=== PATIENT | male | born 1960 | race Caucasian/White ===

== ENCOUNTER 2019-11-01 10:00 | Outpatient (CLI) | payer OTHER, SELFPAY ==
--- NOTE | 2019-11-01 12:45 | DI.US_ITS ---
EXAM: US SOFT TISSUE EXTREMITY CLINICAL HISTORY: tender mass/lump/localized swelling of rt arm, R22.30 TECHNIQUE: Ultrasound performed using standard protocol. COMPARISON: No exams were available for comparison FINDINGS: Soft tissue ultrasound performed the right forearm, the patient has reportedly been recently treated for cellulitis in this area. There is mild nonspecific soft tissue edema in the region surveyed. No abscess seen. No other soft tissue abnormality identified. IMPRESSION: Essentially negative soft tissue ultrasound. DATA REPOSITORY:
== END 2019-11-01 10:20 ==
PROVIDERS: PCP Emergency Medicine; Visit Provider Nurse Practitioner
DX: R22.31 Localized swelling, mass and lump, right upper limb (principal); R60.0 Localized edema
CPT/HCPCS: 76881

== ENCOUNTER 2020-08-01 02:13 | Outpatient (CLI) | payer OTHER, SELFPAY ==
[2020-08-02 14:48] LABS: COVID-19 RT-PCR UVMMC Result Negative (Negative)
== END 2020-08-01 02:33 ==
PROVIDERS: PCP Emergency Medicine; Visit Provider Surgery
DX: Z11.59 Encounter for screening for other viral diseases (principal); Z01.818 Encounter for other preprocedural examination
CPT/HCPCS: U0003

== ENCOUNTER 2020-08-05 13:09 | Day surgery (SDC) | payer OTHER, SELFPAY ==
--- NOTE | 2020-08-05 07:17 | W.PM.ENDDOP ---
Date of service: 08/05/20 Time of Service: 14:13 Endoscopy Report DATE OF PROCEDURE: 08/05/20 PRE-OP DIAGNOSIS: Hx of polyps and GERD POST-OP DIAGNOSIS: same (diverticulosis and mild inflammation of the esophagus) PROCEDURE: 1. EGD with biopsies 2. Colonoscopy SURGEON: Ellie Villar ANESTHESIA: other (General/ASA 2/Santino Meghalan, [employer] DIRECT[employer]) ESTIMATED BLOOD LOSS: 0 PATHOLOGY: other (antrum bx, ge junction bx) COMPLICATIONS: None DISPOSITION: same day INDICATIONS: The patient is here for Colonoscopy pre-op. His last screening was in 2014 and was remarkable for fragments of a tubular adenomatous polyp. He has no family history of colon cancer. He has not had any bowel habit changes. Will ask the surgeon to evaluate his concerns for hemorrhoids. He denies having any symptoms related to the hemorrhoids, however would like them assessed like his PCP had suggested. -Discussed colonoscopy bowel prep as well as the procedure. Discussed possible complications of the procedure to include bleeding, pain, perforation, missed small lesion/polyp, sore throat, aspiration and adverse reaction to the medications. Questions were answered to patient?s satisfaction. No guarantees were implied or given. -Discussed Upper endoscopy procedure and the need to be NPO after midnight the night prior. Discussed possible complications of the procedure to include bleeding, pain, perforation, missed small lesion/polyp/ulcers, sore throat, aspiration and adverse reaction to the medications or sedation. Questions were answered to patient?s satisfaction. No guarantees were implied or given. PREP: Miralax/Dulcolax PROCEDURE START TIME: 14:13 PROCEDURE END TIME: 14:45 COLONOSCOPY RETRACTION TIME: 14 minutes FINDINGS: mild inflammation at the GE junction Divertculosis PROCEDURE DESCRIPTION: After informed consent was obtained the patient was take to the procedure room and placed in a supine position. Monitors were applied and a time out was done. The patients name, date of , procedure type, allergies to medications and metal in their body was reviewed. A bite block was placed and the patient was sedated. Once sedated and comfortable the gastroscope was advanced through the oropharynx which was grossly normal into the esophagus. The proximal and mid-esophagus were normal. In the distal esophagus there was mild inflammation noted. The scope was advanced into the stomach and through the pylorus into the 3rd portion of the duodenum. The duodenum was noted to be normal. The scope was retracted back into the stomach and biopsies were done to rule out H. pylori. There were no ulcers. The scope was retro-flexed. The cardia and fundus were noted to be normal. There was no hiatal hernia noted. The scope was retracted back into the esophagus and biopsies were done of the GE junction to rule out Quezada's. The Z line was regular. The GE junction was at 40 cm. While the patient was still sedated they were placed in a left decubitous position. A rectal exam was done. External exam was normal. Internal exam revealed a normal sphincter tone and no palpable masses. The prostate felt smooth and mildly enlarged. The scope was then introduced and retro-flexed. No internal hemorrhoids were identified. The scope was then advanced to the cecum with some difficulty. The ileocecal valve and appendiceal orifice were identified. The prep was marginal in the right colon. There was a lot of green sticky bile. Saline was used to clean the wall of the right colon. The scope was then slowly retracted over 14 minutes back into the rectum. There were no polyps. He did have diverticulosis of the sigmoid colon. The scope was removed and the patient was woken up and taken back to Same day surgery in stable condition. The patient tolerated the procedure well and there were no immediate complications. Follow up: 5 years due to the fact that he had a pre-cancerous polyp last time
--- NOTE | 2020-08-05 07:19 | W.PM.DSUDISC ---
Discharge Plan Disposition Patient Disposition: HOME Condition: Good Discharge Details Reason For Visit: EGD/Colonoscopy Attending Provider: Ellie Villar Primary Care Provider: Jg Nye Home Meds and New Rx's Prescriptions: Continued omeprazole 20 mg capsule,delayed release(DR/EC) 20 mg PO DAILY Qty: 90 RF: 4 cholecalciferol (vitamin D3) 1,000 unit capsule 1,000 unit PO DAILY RF: 0 naproxen sodium 220 MG capsule 220 mg PO PRN RF: 0 multivitamin [Daily Multi-Vitamin] 1 EACH tablet 1 ea PO DAILY RF: 0 omega-3 fatty acids Capsule 1 cap PO DAILY RF: 0 Discontinued polyethylene glycol 3350 17 gram/dose powder 238 g PO ONCE Qty: 238 RF: 0 bisacodyl [Dulcolax (bisacodyl)] 5 mg tablet,delayed release (DR/EC) 5 mg PO ONCE Qty: 4 RF: 0 Discharge Instructions Additional Instructions: Findings: Mild inflammation of the esophagus- continue with Omeprazole daily Diverticulosis Follow up: 5 years Please call if you develop: fevers >101.5 Nausea or Vomiting Abdominal pain that is not transient DAY SURGERY UNIT POST ENDOSCOPY INSTRUCTIONS 1. Because there will be medication in your system for the next 24 hours, you may feel a little sleepy. Your coordination will be affected. Therefore: a. Do not drive or operate dangerous equipment for 24 hours. b. Do not drink alcohol beverages for 24 hours (not even beer). c. Plan to go home and rest for the day. 2. Generally there are no restrictions on your activity after a day or so has gone by, but you may feel a bit fatigued for a few days. 3 After you arrive home you may have a light meal and return to a normal diet as you can tolerate it without feeling sick to your stomach. 4. After surgery, you may feel pain or discomfort. This should be only transient, but if it persists please contact your doctor. 5. If there are any questions regarding the findings of your procedure, please feel free to contact your doctor. 6. If you are unable to contact your doctor with a problem, contact the hospital at [phone]. 7. Continue all your regular medications unless directed otherwise. I understand the above instructions and have no questions. Signature of Patient or Responsible Adult Escort Date/Time Name of Responsible Adult Escort Signature of Nurse Date/Time Activity:: Activity as Tolerated Diet:: As Tolerated Discharge Orders Discharge Orders: Discharge Order (Routine); Ordered 08/05/20 Ordered By: Ellie Villar
[2020-08-05 13:36] VITALS: BP 140/79; PULSE 75; RESP 18; TEMP 36.3; O2SAT 98
[2020-08-05] MEDS: Lactated Ringers 1,000 ML 80 ML IV (13:46)
--- NOTE | 2020-08-05 14:15 | STOM_PTH ---
PATIENT: Jefferson Quick LOC: [facility] U#:[id number] AGE/SX: 59/M ROOM: RE08/05/[address]: Ellie Villar MD : [id number] BED: DIS: 08/05/2020 SPEC #: [id number] RECD: 08/05/20 17:54 STATUS: LAWANDA REQ #: [id number] JUVE: 08/05/20 14:[address]: Ellie Villar DEPT: Surgical Specimen RECD BY: Claire Blanco ENTERED: 08/05/20 17:55 SP TYPE: STOMACH OTHR DR: Jg Nye DO Tissues: 1 - STOMACH BIOPSY 2 - ESOPHAGUS BIOPSY Procedures: GROSS AND MICRO LEVEL 4 Comments: [id number]
[2020-08-05 15:24] VITALS: BP 150/90; PULSE 69; RESP 18; TEMP 36.6; O2SAT 98
== END 2020-08-05 16:00 | disposition home or self-care (01) ==
LOC: SUR 13:09
PROVIDERS: PCP Emergency Medicine; Visit Provider Surgery
PROC: (CPT 43239; principal; 2020-08-05 14:30)
DX: Z12.11 Encounter for screening for malignant neoplasm of colon (principal); Z86.010 Personal history of colon polyps; K21.00 Gastro-esophageal reflux disease with esophagitis, without bleeding; K57.30 Diverticulosis of large intestine without perforation or abscess without bleeding; K22.10 Ulcer of esophagus without bleeding
CPT/HCPCS: 43239; 45378; 88305; J2001

== ENCOUNTER 2020-11-15 02:34 | Outpatient (CLI) | payer OTHER, SELFPAY ==
[2020-11-15 16:59] LABS: Calculated LDL 172 mg/dL (<100); Cholesterol 254 mg/dL (<200); HDL Cholesterol 57 mg/dL (40-60); Triglyceride 126 mg/dL (<150)
[2020-11-18 10:28] LABS: PSA, Screening 2.2 ng/mL (0.0-3.5)
== END 2020-11-15 02:35 | disposition home or self-care (01) ==
LOC: LBO 02:34
PROVIDERS: PCP Emergency Medicine; Visit Provider Emergency Medicine
DX: E78.00 Pure hypercholesterolemia, unspecified (principal); Z12.5 Encounter for screening for malignant neoplasm of prostate
CPT/HCPCS: 36415; 80061; 84153

== ENCOUNTER 2020-12-26 08:36 | Outpatient (CLI) | payer OTHER, SELFPAY ==
[2020-12-27 15:53] LABS: COVID-19 RT-PCR UVMMC Result Negative (Negative)
== END 2020-12-26 08:37 | disposition home or self-care (01) ==
LOC: LBO 08:36
PROVIDERS: PCP Emergency Medicine; Visit Provider Emergency Medicine
DX: Z20.822 Contact with and (suspected) exposure to COVID-19 (principal)
CPT/HCPCS: U0003

== ENCOUNTER 2021-02-11 19:04 | Outpatient (REF) | payer OTHER, SELFPAY ==
[2021-02-11 18:14] LABS: Calculated LDL 198 mg/dL (<100); Cholesterol 281 mg/dL (<200); HDL Cholesterol 57 mg/dL (40-60); Triglyceride 133 mg/dL (<150)
== END 2021-02-11 19:05 | disposition home or self-care (01) ==
LOC: LBN 19:04
PROVIDERS: PCP Emergency Medicine; Visit Provider Emergency Medicine
DX: E78.00 Pure hypercholesterolemia, unspecified (principal); Z00.00 Encounter for general adult medical examination without abnormal findings
CPT/HCPCS: 80061

== ENCOUNTER 2022-04-14 03:30 | Outpatient (CLI) | payer OTHER, SELFPAY ==
[2022-04-14 08:13] LABS: Calculated LDL 114 mg/dL (<100); Cholesterol 189 mg/dL (<200); HDL Cholesterol 70 mg/dL (40-60); Triglyceride 28 mg/dL (<150)
== END 2022-04-14 03:31 | disposition home or self-care (01) ==
LOC: LBO 03:30
PROVIDERS: PCP Nurse Practitioner Family; Visit Provider Nurse Practitioner Family
DX: E78.00 Pure hypercholesterolemia, unspecified (principal)
CPT/HCPCS: 36415; 80061